=== PATIENT | female | born 2005 | race Caucasian/White ===

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

== ENCOUNTER → 2024-09-01 09:46 | Outpatient (BNVA) | payer OTHER, SELFPAY | PROVIDERS: PCP Electrodiagnostic Medicine; Visit Provider Nurse Practitioner Women's Health | DX: N92.6 Irregular menstruation, unspecified (principal); Z78.9 Other specified health status | CPT/HCPCS: 81025; 84702 ==

== ENCOUNTER → 2024-09-04 09:53 | Outpatient (BNVA) | payer OTHER, SELFPAY | PROVIDERS: PCP Electrodiagnostic Medicine; Visit Provider Nurse Practitioner Women's Health | DX: Z78.9 Other specified health status (principal) | CPT/HCPCS: 84702 ==

== ENCOUNTER → 2024-09-14 08:46 | Outpatient (BNVA) | payer OTHER, SELFPAY | PROVIDERS: PCP Electrodiagnostic Medicine; Visit Provider Nurse Practitioner Women's Health | DX: Z34.01 Encounter for supervision of normal first pregnancy, first trimester (principal) | CPT/HCPCS: 76801 ==

== ENCOUNTER → 2024-09-19 10:20 | Outpatient (BNVA) | payer OTHER, SELFPAY | PROVIDERS: PCP Electrodiagnostic Medicine | DX: J02.9 Acute pharyngitis, unspecified (principal); J02.8 Acute pharyngitis due to other specified organisms; B97.89 Other viral agents as the cause of diseases classified elsewhere | CPT/HCPCS: 87071; 87400; 87426; 87880 ==

== ENCOUNTER → 2024-09-26 14:04 | Outpatient (BNVA) | payer OTHER, SELFPAY | PROVIDERS: PCP Electrodiagnostic Medicine; Visit Provider Nurse Practitioner Women's Health | DX: Z34.90 Encounter for supervision of normal pregnancy, unspecified, unspecified trimester (principal) | CPT/HCPCS: 80307; 84315; 85025; 86592; 86762; 86803; 86850; 86900; 87086; 87340; 87806 ==

== ENCOUNTER → 2024-10-13 09:05 | Outpatient (BNVA) | payer OTHER, SELFPAY | PROVIDERS: PCP Electrodiagnostic Medicine; Visit Provider Obstetrics & Gynecology | DX: Z34.01 Encounter for supervision of normal first pregnancy, first trimester (principal) | CPT/HCPCS: 84315; 87491; 87591; 87661 ==

== ENCOUNTER → 2024-11-08 08:12 | Outpatient (BNVA) | payer OTHER, SELFPAY | PROVIDERS: PCP Electrodiagnostic Medicine; Visit Provider Nurse Practitioner Women's Health | DX: O99.331 Smoking (tobacco) complicating pregnancy, first trimester (principal); O23.40 Unspecified infection of urinary tract in pregnancy, unspecified trimester; B95.1 Streptococcus, group B, as the cause of diseases classified elsewhere; O23.42 Unspecified infection of urinary tract in pregnancy, second trimester | CPT/HCPCS: 84315; 87086 ==

== ENCOUNTER → 2024-11-30 14:29 | Outpatient (BNVA) | payer OTHER, SELFPAY | PROVIDERS: PCP Electrodiagnostic Medicine; Visit Provider Obstetrics & Gynecology | DX: Z34.92 Encounter for supervision of normal pregnancy, unspecified, second trimester (principal) | CPT/HCPCS: 76805 ==

== ENCOUNTER → 2024-12-08 09:56 | Outpatient (BNVA) | payer OTHER, SELFPAY | PROVIDERS: PCP Electrodiagnostic Medicine; Visit Provider Nurse Practitioner Women's Health | DX: Z34.90 Encounter for supervision of normal pregnancy, unspecified, unspecified trimester (principal) | CPT/HCPCS: 84315 ==

== ENCOUNTER → 2024-12-28 13:38 | Outpatient (BNVA) | payer OTHER, SELFPAY | PROVIDERS: PCP Electrodiagnostic Medicine; Visit Provider Nurse Practitioner Women's Health | DX: Z34.02 Encounter for supervision of normal first pregnancy, second trimester (principal) | CPT/HCPCS: 76816; 82950; 84315 ==

== ENCOUNTER → 2025-01-26 09:51 | Outpatient (BNVA) | payer OTHER, SELFPAY | PROVIDERS: PCP Electrodiagnostic Medicine; Visit Provider Nurse Practitioner Women's Health | DX: Z34.90 Encounter for supervision of normal pregnancy, unspecified, unspecified trimester (principal) | CPT/HCPCS: 84315; 85025 ==

== ENCOUNTER → 2025-02-06 15:33 | Outpatient (BNVA) | payer OTHER, MEDICAID, SELFPAY | PROVIDERS: PCP Electrodiagnostic Medicine; Visit Provider Nurse Practitioner Women's Health | DX: Z34.90 Encounter for supervision of normal pregnancy, unspecified, unspecified trimester (principal) | CPT/HCPCS: 76816 ==

== ENCOUNTER → 2025-02-09 10:02 | Outpatient (BNVA) | payer OTHER, SELFPAY | PROVIDERS: PCP Electrodiagnostic Medicine; Visit Provider Nurse Practitioner Women's Health | DX: Z34.93 Encounter for supervision of normal pregnancy, unspecified, third trimester (principal) | CPT/HCPCS: 84315 ==

== ENCOUNTER → 2025-02-23 08:20 | Outpatient (BNVA) | payer OTHER, SELFPAY | PROVIDERS: PCP Electrodiagnostic Medicine; Visit Provider Nurse Practitioner Women's Health | DX: O09.90 Supervision of high risk pregnancy, unspecified, unspecified trimester (principal); O23.42 Unspecified infection of urinary tract in pregnancy, second trimester; B95.1 Streptococcus, group B, as the cause of diseases classified elsewhere; O99.331 Smoking (tobacco) complicating pregnancy, first trimester; Z14.8 Genetic carrier of other disease; O26.843 Uterine size-date discrepancy, third trimester | CPT/HCPCS: 84315 ==

== ENCOUNTER 2025-03-02 16:47 | Emergency (ER) | payer OTHER, MEDICAID, SELFPAY ==
[2025-03-02 16:52] VITALS: BP 112/72; PULSE 88; RESP 16; TEMP 36.7; O2SAT 98; BMI 29.2
--- NOTE | 2025-03-02 17:03 | ED_ITS ---
HPI - Animal Bite General: Chief Complaint: Animal Bite Stated Complaint: dog bite right leg Time Seen by Provider: 03/02/25 16:58 Source: patient Mode of arrival: ambulatory Limitations: no limitations History of Present Illness: 19-year-old female states she is bit by a dog just prior to arrival she has been in the right leg her dog is her grandfather's dog she states he is not up-to-date on his vaccinations but is normal acting. To wounds right lower leg no bleeding no deep wounds or puncture wounds. Has pain she rates a 2 out of 10 currently Associated symptoms: Deny chills, fever(s) or headache(s) Related Data Home Medications ?Medication ?Instructions ?Recorded ?Confirmed vitamin#30 30 mg iron-10 cap PO 01/26/2512/19 mg iron-folic acid 1 mg-omg3 capsule Previous Rx's ?Medication ?Instructions ?Recorded amoxicillin 500 mg-potassium 1 tab PO BID #14 tabs 07/19 clavulanate 125 mg tablet (Augmentin) Allergies Allergy/AdvReac Type Severity Reaction Status Date / Time No Known Allergies Allergy Verified 02/23/25 10:07 Review of Systems Const: Denies: fever(s), chills, body aches or change in appetite ENMT: Denies: throat pain or dental pain Card: Denies: chest pain Resp: Denies: dyspnea GI: Denies: abdominal pain, nausea, vomiting or diarrhea Musc: Reports: extremity pain; Denies: neck pain or back pain Skin/Breast: Denies: rash Neuro: Denies: headache(s) PFSH ED PFSH: Medical History No pertinent past medical history neghx: htn,dm,thyroid,dvt/pe,migraines History of eating disorder Surgical History No pertinent past surgical history Family History Grandmother Diabetes Maternal grandmother Colon cancer Maternal great grandmother--dx age unknown Stroke Maternal grandmother Cervical cancer Maternal--dx age around 25 Maternal Great Grandmother--dx age unknown Grandfather Diabetes Maternal great grandfather Heart disease Maternal great grandfather Hypertension Maternal Great Grandfather Mother Cervical cancer dx age 34 Father Heart disease Hypertension Denies family history of Ovarian cancer Hyperlipidemia Breast cancer Family history of thyroid problem Uterine cancer Social History Smoking and tobacco/nicotine status: former use of tobacco/nicotine (09/2024) Physical Exam Const: COMMON NORMALS: no acute distress, patient oriented x3 and healthy appearing HENMT: COMMON NORMALS: normocephalic and atraumatic HEAD & SCALP: normocephalic and atraumatic Eye: COMMON NORMALS: conjunctivae normal CONJUNCTIVA: Yes conjunctivae normal Neck/C-Spine: COMMON NORMALS: supple Chest: COMMONS NORMALS: normal inspection of the chest Resp: COMMON NORMALS: normal respiratory effort Cardio: COMMON NORMALS: regular rate RATE: regular rate Extremity: NARRATIVE EXTREMITY EXAM: 2 superficial lacerations to right lower leg is not gaping roughly 2 cm in nature bleeding is controlled Neuro: COMMON NORMALS: patient oriented x3, moves all extremities and no focal motor deficits Psych: COMMON NORMALS: mental status grossly normal, Normal thought process pr esent and cooperative THOUGHT PROCESS: Normal thought process present Course Vital Signs: Vital signs: Vital Signs Temperature 98.1 F 03/02/25 16:52 Pulse Rate 88 03/02/25 16:52 Respiratory Rate 16 03/02/25 16:52 Blood Pressure 112/72 03/02/25 16:52 Pulse Oximetry 98 03/02/25 16:52 Oxygen Delivery Me thod Room Air 03/02/25 16:52 MDM - Animal Bite Medical Decision Making Patient presents with dog bite to right lower leg no laceration noted I did offer rabies but did state they could also call animal control as dog is known with the grandparents informed if they change her mind about the rabies vaccination return as they did not want to at this time and was going to call animal control we will start on Augmentin for the bite No radiology studies performed this visit Discharge Plan Discharge Patient Disposition: Home Clinical Impression: Dog bite Condition: Stable Prescriptions: New amoxicillin-pot clavulanate [Augmentin] 500-125 mg tablet 1 tab PO BID Qty: 14 0RF No Action PNV #[id number] 30 mg iron-10 mg iron-1 mg capsule PO Discharge Orders: Discharge ED (Routine); Ordered 03/02/25 Ordered By: Jony Ennis Referrals: Tonio Poe DO [Primary Care Provider, [facility]] - 4-7 days Discharge Diet: Advance as tolerated Discharge Activity: Resume usual activity Patient Instructions: Animal Bite (ED) Print Language: Bulgarian Coding Level of Care Code ED Director Intelligence Analysis Programs for Nando Gutierrez
== END 2025-03-02 17:10 | disposition home or self-care (01) ==
PROVIDERS: Emergency Provider Emergency Medicine; PCP Electrodiagnostic Medicine
DX: S81.851A Open bite, right lower leg, initial encounter (principal); W54.0XXA Bitten by dog, initial encounter; Z87.891 Personal history of nicotine dependence
CPT/HCPCS: 99283

== ENCOUNTER → 2025-03-07 13:07 | Outpatient (BNVA) | payer OTHER, SELFPAY | PROVIDERS: PCP Electrodiagnostic Medicine; Visit Provider Nurse Practitioner Women's Health | DX: Z36.9 Encounter for antenatal screening, unspecified (principal) | CPT/HCPCS: 76816; 84315 ==

== ENCOUNTER 2025-03-24 20:39 | Inpatient (IN) | payer OTHER, MEDICAID, SELFPAY ==
[2025-03-24] VITALS (25 sets, daily range): BP systolic 105–135; BP diastolic 55–81; PULSE 71–100; O2SAT 98–100
[2025-03-24 20:46] LABS: Basophils % 0.2 %; Eosinophils # 0.1 10^3/uL (0.0-0.8); Eosinophils % 0.6 %; Hematocrit 33.6 % (36-47); Lymphocytes # 2.3 10^3/uL (1.5-6.5); Lymphocytes % 14.5 %; Mean Corpuscular HGB Conc 32.7 g/dL (30-55); Mean Corpuscular Hemoglobin 28.6 pg (27-33); Mean Corpuscular Volume 87.5 fl (85-98); Mean Platelet Volume 10.4 fL (7.4-10.4); Monocytes # 1.5 10^3/uL (0.2-0.9); Monocytes % 9.4 %; Neutrophils # 11.82 10^3/uL (1.8-8.0); Neutrophils % 73.7 %; Nucleated Red Blood Cells % 0 %; Platelet Count 318 10^3/cmm (157-399); Red Blood Count 3.84 10^6/uL (3.85-5.65); Red Cell Distribution Width 11.5 % (12.1-15.1); White Blood Count 16.02 10^3/uL (4.5-13.0)
[2025-03-24] MEDS: ampicillin 2,000 MG in sodium chloride 0.9% (plus) 50 ML 100 MG IV (20:57)
[2025-03-24] MEDS: ROPivacaine syringe 100 MG/50 ML SYRINGE 13 MG EPIDURAL (22:11)
--- NOTE | 2025-03-24 22:18 | ANES.PREANE2 ---
Pre-Anesthetic Assessment Height/Weight: Height 1.63 m Weight 79.379 kg Pulse BP Pulse Ox O2 Del Method 80 119/58 98 Room Air 03/24/25 22:15 03/24/25 22:15 03/24/25 22:10 03/24/25 20:40 Preop Diagnosis: intra uterine labor epidural Familial anesthetic complications: none Was Beta Vito taken within 24 hours: N/A Was Clonidine taken within 24 hours: N/A Social No alcohol and No tobacco Exam alert, oriented x 3 and clear to auscultation bilaterally Airway Mallampati: Class II Dentition: full History/ROS No significant history except as noted Pulmonary None reported CV/HEM None reported None reported Hepatic None reported GI None reported Metabolic None reported Musc/skel None reported Neuropsych None reported Anesthetic Plan ASA status: 2 Anesthesia: Anesthesia Evaluation and Regional (specify below) Risk of > 500 ml blood loss (7ml/kg in children): Yes, adequate IV access and fluids planned Medications/Allergies Home Medications ?Medication ?Instructions ?Recorded ?Confirmed ?Last Taken ?Type vitamin#30 30 mg iron-10 1 cap PO DAILY 01/26/25 03/24/25 03/24/25 History mg iron-folic acid 1 mg-omg3 capsule Allergies Allergy/AdvReac Type Severity Reaction Status Date / Time No Known Allergies Allergy Verified 03/24/25 20:28 [facility] Anesthesia Medical History No pertinent past medical history neghx: htn,dm,thyroid,dvt/pe,migraines History of eating disorder Surgical History No pertinent past surgical history Family History Grandmother Diabetes Maternal grandmother Colon cancer Maternal great grandmother--dx age unknown Stroke Maternal grandmother Cervical cancer Maternal--dx age around 25 Maternal Great Grandmother--dx age unknown Grandfather Diabetes Maternal great grandfather Heart disease Maternal great grandfather Hypertension Maternal Great Grandfather Mother Cervical cancer dx age 34 Father Heart disease Hypertension Denies family history of Ovarian cancer Hyperlipidemia Breast cancer Family history of thyroid problem Uterine cancer Social History Smoking and tobacco/nicotine status: former use of tobacco/nicotine (09/2024) Female Reproductive History : 1 Data Anesthesia 03/24/25 20:35 Short CBC 03/24/25 Range/Units 20:35 WBC 16.02 H (4.5-13.0) 10^3/uL Hgb 11.00 L (12.4-14.8) g/dL Hct 33.6 L (36-47) % MCV 87.5 (85-98) fl Plt Count 318 (157-399) 10^3/cmm Neut % (Auto) 73.7 % Neut # (Auto) 11.82 H (1.8-8.0) 10^3/uL Blood Bank 03/24/25 20:35 Blood Type O Positive Rho(D) Type Rh positive Antibody Screen Negative Anesthesia Procedures Epidural Time Out Performed: Yes Consents Signed: Procedure Consent Consent: requested by attending/covering physician, from patient, risks and benefits reviewed and patient agrees to proceed Lumbar Level: L4-L5 Epidural position: sitting Epidural procedure: sterile prep of area, 1% lidocaine to numb the area, 18 g needle, negative for paresthesia passed, neg for paresthesia, test dose given, 1.5% xylocaine 1:200k epi, 0.2% Ropivacaine bolus ml (5), placed PCEA, no systemic response, sterile dressing applied, L.U.D. no apparent complications and 0.2% Ropiavacaine @ mls/hr (13) Additional Comments: KATERYNA 6cm, catheter easily threaded to 5cm in the space. VS monitored throughout and remained stable. Pt educated on BOILER TESTER and reports adequate analgesia with epidural.
--- NOTE | 2025-03-24 23:35 | PM.OPHPUD ---
Labor & Delivery H&P Update Date of Procedure: March 24, 2025 Date H&P Performed: 03/07/25 Changes to previous documentation: 19-year-old female G1, P0 with LMP 07/14/2024 JAYESH 04/14/2025 admitted to labor and delivery at 37 weeks gestation with complaints of spontaneous rupture membranes 7:30 PM. Patient admitted to good movement and denied vaginal bleeding. records reviewed and reveals no complications during this . significance of maternal SMA carrier, FOB tested negative. EFM?category 1 with contractions every 2 to 5 minutes. Pelvic exam?by nursing staff cervix 6 to 7 cm / 80%/-2 vertex presentation with clear fluid noted. Admission Diagnosis: Preop diagnosis: intra uterine Primary indication for procedure: Admission to labor and delivery for management of labor with SROM. 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
[2025-03-25] VITALS (23 sets, daily range): BP systolic 96–144; BP diastolic 54–81; PULSE 65–120; TEMP 36.6–37; O2SAT 98–99
[2025-03-25] MEDS: oxytocin 30 UNIT/500 ML BAG 600 UNIT IV (01:40)
--- NOTE | 2025-03-25 01:54 | PM.DELIVERY ---
Delivery Note: Date of delivery: March 25, 2025 Pre-delivery diagnoses: 37-week gestation Active labor SROM GBS positive Procedure: 19-year-old female G1, P1 delivered a viable baby girl OA presentation to perineum. Several pushes later the anterior followed by the posterior shoulders delivered with the remainder the baby's body to follow. Spontaneous robust cry was noted. After delayed cord clamping the cord was clamped and cut and baby placed on the mother's abdomen for bonding. Nursing staff was present for evaluation and assessment. Arterial and venous cord blood were drawn and handed off. The cord was noted to have 3 vessels present. The uterus was massaged Pitocin IV solution started in a bolus manner. The placenta presented in a Graham presentation with trailing membranes. The vaginal vault was explored as well as the rim of the cervix. Second-degree midline laceration was noted. This was repaired with 2-0 Vicryl with good hemostasis and approximation. Uterus remained firm with minimal bleeding. Weight?6 pounds 6 ounces 8/9 anesthesia?epidural complications?none Op report anesthesia: Epidural Delivering Physician: Adrienne Peralta DO Estimated blood loss (mL): 400 Findings: Viable baby girl Post Delivery Diagnoses: GBS (group B streptococcus) UTI complicating : Qualifiers: Trimester: second trimester Qualified Code(s): O23.42 - Unspecified infection of urinary tract in , second trimester; B95.1 - Streptococcus, group B, as the cause of diseases classified elsewhere Supervision of normal first : Qualifiers: Trimester: first trimester Qualified Code(s): Z34.01 - Encounter for supervision of normal first , first trimester Pre-Delivery Course: 19-year-old female G1, P0 at 37 weeks gestation presented to labor and delivery with spontaneous rupture of membranes. Pelvic exam found the cervix to be 7 cm / 80%/-2 vertex presentation with clear fluid. Patient progressed in labor to complete dilatation. 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
[2025-03-25] MEDS: PRENATAL VIT NO.130/IRON/FOLIC 1 EACH TABLET PO (09:02)
[2025-03-25] MEDS: ibuprofen 800 mg tablet PO ×3 (09:02→20:46)
[2025-03-25] MEDS: docusate sodium 100 mg Capsule PO (09:02)
[2025-03-25 14:58] LABS: Hematocrit 29.5 % (36-47); Mean Corpuscular HGB Conc 33.2 g/dL (30-55); Mean Corpuscular Hemoglobin 28.8 pg (27-33); Mean Corpuscular Volume 86.8 fl (85-98); Mean Platelet Volume 10.5 fL (7.4-10.4); Platelet Count 271 10^3/cmm (157-399); Red Cell Distribution Width 11.5 % (12.1-15.1)
--- NOTE | 2025-03-25 17:42 | P.PN_ITS ---
INCIDENT ENGINEER Subjective 2 Subjective: Interval history: 19-year-old female G1, P1 s/p , patie nt denies headaches, blurred vision, shortness of breath or chest pain. Patient denies excessive vaginal bleeding or passage of clots. Discussion of expectations reviewed, patient states baby did not latch well therefore has resorted to bottlefeeding. I encouraged patient to continue attempts for baby to latch on and the nursing staff will help with strategies. VSS, afebrile Abdomen?soft, fundus firm well below umbilicus. Lochia?rubra light. Extremities?no edema, negative Homans' sign. Lab?hemoglobin 9.8/hematocrit 29.5 Labor: Station: +1 Amniotic Membrane Status: Ruptured Monitor Mode: Palpation Contraction Pattern: Irregular Vitals/I&O/Wt Last Vital Signs Temp 98.1 F 03/25/25 15:45 Pulse 80 03/25/25 15:45 BP 114/71 03/25/25 15:45 Pulse Ox 99 03/25/25 08:00 O2 Del Method Room Air 03/25/25 15:45 03/25/25 03/25/25 03/25/25 06:59 14:59 22:59 Intake Total 50 / 50 Balance 50 / 50 Weight last 48 hrs Weight 79.379 kg Weight 79.379 kg Physical Exam 2 Urinary Catheter Management: Rodríguez: Cath Placed During This Visit: yes, but has since been removed by the nurse Reason for Continuing Indwelling Catheter: Decision to DC Catheter Urinary Catheter Date of Insertion: 03/24/25 Urinary Catheter Time of Insertion: 22:58 Date Urinary Catheter Removed: 03/25/25 Time Urinary Catheter Discontinued: 00:50 Data 03/25/25 14:51 A&P Assessment and plan (1) Anemia: Asymptomatic acute blood loss from delivery. 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
[2025-03-26 04:05] VITALS: BP 122/74; PULSE 72; TEMP 36.6
[2025-03-26] MEDS: HYDROcodone-acetaminophen 5-325 mg Tablet PO (04:54)
[2025-03-26] MEDS: ibuprofen 800 mg tablet PO ×3 (09:05→20:04)
[2025-03-26] MEDS: PRENATAL VIT NO.130/IRON/FOLIC 1 EACH TABLET PO (09:05)
[2025-03-26] MEDS: docusate sodium 100 mg Capsule PO ×2 (09:05→20:04)
[2025-03-26 09:12] VITALS: BP 114/73; PULSE 79; TEMP 36.7
[2025-03-26 15:20] VITALS: BP 112/72; PULSE 67; TEMP 36.8
--- NOTE | 2025-03-26 17:10 | P.PN_ITS ---
BASKETBALLS AND FOOTBALLS REVERSER Subjective 2 Subjective: Interval history: no c/o no bleeding mild perineal pain relieved with pain medications eating, voiding, ambulating well caring for without any problems Labor: Station: +1 Amniotic Membrane Status: Ruptured Monitor Mode: Palpation Contraction Pattern: Irregular Vitals/I&O/Wt Last Vital Signs Temp 98 F 03/26/25 20:04 Pulse 90 03/26/25 20:04 Resp 15 03/26/25 20:04 BP 128/78 03/26/25 20:04 Pulse Ox 98 03/26/25 20:04 O2 Del Method Room Air 03/26/25 20:04 Physical Exam 2 Narrative: afebrile, VS normal comfortable, awake, alert Abd: soft, nontender. fundus firm Ext: no edema; nontender Urinary Catheter Management: Rodríguez: Cath Placed During This Visit: yes, but has since been removed by the nurse Reason for Continuing Indwelling Catheter: Decision to DC Catheter Urinary Catheter Date of Insertion: 03/24/25 Urinary Catheter Time of Insertion: 22:58 Date Urinary Catheter Removed: 03/25/25 Time Urinary Catheter Discontinued: 00:50 Data 03/25/25 14:51 A&P Assessment and plan (1) (spontaneous vaginal delivery): PPD #1 , repair of second-degree perineal laceration March 25, 2025 at 0200 doing well discharge to home today instructions and precautions given call/return if fever, chills, headache, blurry vision, nausea, vomiting, abdominal pain; vaginal bleeding or discharge; shortness of breath, chest pain, leg pains or swelling; inability to void, perineal pain or swelling; feelings of depression or mood changes; thoughts of suicide or harming others; inability to care for baby. f/u in 6 weeks or PRN PDMP PDMP Reviewed: Not Reviewed Attestations 2 Medical Necessity Statement*: patient s/p vaginal delivery, plan to discharge to home today Coding Level of Care Code Acute Code for Chg Fwd Diagnoses (spontaneous vaginal delivery) O80
--- NOTE | 2025-03-26 17:20 | PM.OBGYDC ---
Discharge Providers PIN DRAFTER OPERATOR Date of Admission: 03/24/25 20:39 Date of Discharge: 03/26/25 Attending Provider at Admission: Adrienne Peralta DO Attending Provider at Discharge: Robbie Marcelino MD Consults: none Primary Care Provider: Tonio Poe DO Diagnoses at Discharge Discharge Diagnosis (1) (spontaneous vaginal delivery): Details from hospital stay: 19 y.o. G1 at 37 weeks no complications presented with active labor and spontaneous rupture of membranes patient was GBS + was given IV antibiotics per GBS protocol patient progressed in labor fetus was reassuring throughout patient delivered vaginally a vigorous infant without any complications a second-degree perineal laceration was repaired patient did well had mild anemia and was started on iron patient was discharged to home on the first day Status: Acute Reason for Visit Reason for Visit: Poss. Srom, Ctx. Brief History: 19 y.o. G1 at 37 weeks no complications presented with active labor and spontaneous rupture of membranes Hospital Course Hospital Course 19 y.o. G1 at 37 weeks no complications presented with active labor and spontaneous rupture of membranes patient was GBS + was given IV antibiotics per GBS protocol patient progressed in labor fetus was reassuring throughout patient delivered vaginally a vigorous without any complications a second-degree perineal laceration was repaired patient did well had mild anemia and was started on iron patient was discharged to home on the first day Information Peripartum Data: Delivery Method: Vaginal Laceration description: Perineal - 2nd Degree Episiotomy description: None complications: none Physical Exam Narrative: afebrile, VS normal comfortable, awake, alert Lungs: clear Cor: RRR Abd: soft, nontender. fundus firm Ext: no edema; nontender Urinary Catheter Management: Rodríguez: Cath Placed During This Visit: yes, but has since been removed by the nurse Reason for Continuing Indwelling Catheter: Decision to DC Catheter Urinary Catheter Date of Insertion: 03/24/25 Urinary Catheter Time of Insertion: 22:58 Date Urinary Catheter Removed: 03/25/25 Time Urinary Catheter Discontinued: 00:50 History History History 1 Term 1 0 Miscarriages/Ectopic 0 Living Children 10 Discharge Data Studies Completed and Pending Laboratory Results WBC 19.40 10^3/uL (4.5-13.0) H 03/25/25 14:51 RBC 3.40 10^6/uL (3.85-5.65) L 03/25/25 14:51 Hgb 9.80 g/dL (12.4-14.8) L 03/25/25 14:51 Hct 29.5 % (36-47) L 03/25/25 14:51 MCV 86.8 fl (85-98) 03/25/25 14:51 MCH 28.8 pg (27-33) 03/25/25 14:51 MCHC 33.2 g/dL (30-55) 03/25/25 14:51 RDW 11.5 % (12.1-15.1) L 03/25/25 14:51 Plt Count 271 10^3/cmm (157-399) 03/25/25 14:51 MPV 10.5 fL (7.4-10.4) H 03/25/25 14:51 Neut % (Auto) 73.7 % 03/24/25 20:35 Lymph % (Auto) 14.5 % 03/24/25 20:35 [place] % (Auto) 9.4 % 03/24/25 20:35 Eos % (Auto) 0.6 % 03/24/25 20:35 Baso % (Auto) 0.2 % 03/24/25 20:35 Neut # (Auto) 11.82 10^3/uL (1.8-8.0) H 03/24/25 20:35 Lymph # (Auto) 2.3 10^3/uL (1.5-6.5) 03/24/25 20:35 [place] # (Auto) 1.5 10^3/uL (0.2-0.9) H 03/24/25 20:35 Eos # (Auto) 0.1 10^3/uL (0.0-0.8) 03/24/25 20:35 Baso # (Auto) 0.0 10^3/uL (0.0-0.1) 03/24/25 20:35 Nucleated RBC % (auto) 0 % 03/24/25 20:35 Nucleated RBCs # 0.0 /100WBC 03/24/25 20:35 Blood Type O Positive 03/24/25 20:35 Rho(D) Type Rh positive 03/24/25 20:35 Antibody Screen Negative 05/31/25 20:35 Procedures Performed vaginal delivery repair of second-degree perineal laceration Vitals Last Vital Signs Temp 98 F 03/26/25 20:04 Pulse 90 03/26/25 20:04 Resp 15 03/26/25 20:04 BP 128/78 03/26/25 20:04 Pulse Ox 98 03/26/25 20:04 O2 Del Method Room Air 03/26/25 20:04 Results Labs OB ([facility]): Obstetrics US 03/07/25 Blood Type O Positive 03/24/25 Antibody Screen Negative 03/24/25 Hct, (36-47) 29.5 % L 03/25/25 Hgb, (12.4-14.8) 9.80 g/dL L 03/25/25 Rho(D) Type Rh positive 03/24/25 Plt Count, (157-399) 271 10^3/cmm 03/25/25 Hep Bs Antigen, (Nonreactive) Non-reactive 09/26/24 Hepatitis C Antibody, (Nonreactive) Non-reactive 09/26/24 Rubella IgG Antibody, (0.0-10.0) 107.6 IU/mL H 09/26/24 RPR, (Nonreactive) Nonreactive 09/26/24 HIV 1&2 Ab & HIV 1 Ag, (Non-Reactiv) Non-reactive 09/26/24 C.trachomatis RNA (TMA), (NOT DETECTED) Not detected 12/02/23 N.gonorrhoeae RNA (TMA), (NOT DETECTED) Not detected 12/02/23 T. vaginalis Amp RNA, (NOT DETECTED) Not detected 12/02/23 Chlamydia/GC Comment See note 12/02/23 Glucose 1 Hr 50 gm, (85-140) 94 mg/dL 12/28/24 Ser , Semi-Qnt 19951126.00 mIU/mL 09/04/24 HCG, Qual, (Negative) Positive H 09/01/24 Urine Opiates Screen, (Negative) Negative ng/mL 09/26/24 Ur Barbiturates Screen, (Negative) Negative ng/mL 09/26/24 Ur Phencyclidine Scrn, (Negative) Negative ng/mL 09/26/24 Ur Amphetamines Screen, (Negative) Negative ng/mL 09/26/24 U Benzodiazepines Scrn, (Negative) Negative ng/mL 09/26/24 Urine Cocaine Screen, (Negative) Negative ng/mL 09/26/24 U Marijuana (THC) Screen, (Negative) Negative ng/mL 09/26/24 Micro Urine Specimen 11/08/24 Discharge Plan Discharge Patient Disposition: Home Condition: Stable Prescriptions: Continued PNV #[id number] 30 mg iron-10 mg iron-1 mg capsule 1 cap PO DAILY Discharge Orders: Discharge Order (Routine); Ordered 03/26/25 Ordered By: Robbie Marcelino Referrals: Sabrina Eastman APN, LORENZA [Nurse Practitioner, PIN DRAFTER OPERATOR] - 05/02/25 12:30 pm Discharge Diet: Usual diet Discharge Activity: Increase activity as tolerated Patient Instructions: Depression (DC), Opioid Safety (DC), Preeclampsia and Eclampsia After Delivery (GEN), Hemorrhage (DC), OB Discharge Report, OB Food/Drug Interaction Guide, Opioid Safety, OB Home Care, OB Vaginal Deliveries - [facility], Abnormal Bleeding Activity Restrictions/Additional Instructions: Take iron 1-2 x / day for anemia Discharge Attestations PIN DRAFTER OPERATOR Time Spent in Discharge Care*: less than 30 min Coding Level of Care Code Acute Code for Chg Fwd Diagnoses (spontaneous vaginal delivery) O80
[2025-03-26 20:00] VITALS: BP 128/78; PULSE 90; RESP 15; TEMP 36.6; O2SAT 98
[2025-03-26 20:04] VITALS: BP 128/78; PULSE 90; RESP 15; TEMP 36.6; O2SAT 98
== END 2025-03-26 20:35 | disposition home or self-care (01) | DRG 807 ==
LOC: OPOB 20:39 → OBGYN 20:39
PROVIDERS: Admitting Provider Obstetrics & Gynecology; PCP Electrodiagnostic Medicine; Visit Provider Obstetrics & Gynecology
DX: O70.1 Second degree perineal laceration during delivery (principal); Z37.0 Single live birth; O99.824 Streptococcus B carrier state complicating childbirth; Z3A.37 37 weeks gestation of pregnancy; O99.892 Other specified diseases and conditions complicating childbirth; Z14.8 Genetic carrier of other disease; O90.81 Anemia of the puerperium; D64.9 Anemia, unspecified
CPT/HCPCS: 36415; 51702; 59025; 59409; 83986; 85025; 85027; 86850; 86900; 99211; J0290; J2590; J2795; J9999

== ENCOUNTER → 2025-05-02 13:50 | Outpatient (BNVA) | payer OTHER, MEDICAID, SELFPAY | PROVIDERS: PCP Electrodiagnostic Medicine; Visit Provider Nurse Practitioner Women's Health | DX: Z12.4 Encounter for screening for malignant neoplasm of cervix (principal); Z39.2 Encounter for routine postpartum follow-up | CPT/HCPCS: 88175 ==

== ENCOUNTER → 2025-05-18 11:00 | Outpatient (BNVA) | payer OTHER, MEDICAID, SELFPAY | PROVIDERS: PCP Family Medicine; Visit Provider Family Medicine | DX: R00.2 Palpitations (principal); D50.9 Iron deficiency anemia, unspecified | CPT/HCPCS: 80053; 82728; 83550; 83735; 84443; 85025 ==

== ENCOUNTER → 2025-10-19 18:39 | Outpatient (BNVA) | payer MEDICAID, SELFPAY | PROVIDERS: PCP Family Medicine; Visit Provider Emergency Medicine | DX: N89.8 Other specified noninflammatory disorders of vagina (principal) | CPT/HCPCS: 81513; 87481; 87491; 87591; 87661 ==